=== PATIENT | male | born 1980 | race Caucasian/White ===

== ENCOUNTER 2016-11-04 20:00 | Emergency (ER) | payer BC, OTHER ==
[2016-11-04] MEDS ORDERED: SODIUM CHLORIDE 0.9% 1,000 ML IV ONE (20:31)
[2016-11-04] MEDS ORDERED: MAG HYDROX/AL HYDROX/SIMETH 30 ML, HYOSCYAMINE ELIXIR 10 ML, CIMETIDINE HCL 300 MG, LID... PO STA ×4 (20:31)
[2016-11-04] MEDS ORDERED: HYDROmorphone 1 MG/ML 1 ML SYRINGE IVP STA (20:31)
[2016-11-04] MEDS ORDERED: ONDANSETRON 4 MG/2 ML VIAL IVP STA (20:31)
--- NOTE | 2016-11-04 20:51 | ED ---
Abdominal Pain HPI - General Chief Complaint: Abdominal Pain Stated Complaint: Abd Pain Source: patient Mode of arrival: ambulatory Limitations: no limitations - History of Present Illness Initial Comments: 36 yo male presenting for evaluation of epigastric abdominal pain since the middle of last night. He states he got up to get a drink of water and the pain gradually started and progressed throughout the day. He describes it as a sharpness without radiation. There are no exacerbating or alleviating factors. He states he has a subjective history of PUD however this has never been confirmed. Associated nausea without vomiting. - Related Data Home Medications Medication Instructions Recorded Confirmed Cetirizine HCl [Zyrtec] 10 mg PO DAILY 11/04/16 11/04/16 Garlic 1 tab PO DAILY 11/04/16 11/04/16 Green Tea Kelley Extract [Green Tea 150 mg PO DAILY 11/04/16 11/04/16 Extract] L.acidoph,Paracasei, B.lactis 1 cap PO DAILY 11/04/16 11/04/16 [Probiotic] Multivitamins, Thera [Multivitamin 1 tab PO DAILY 11/04/16 11/04/16 (formulary)] Sprague-3 Fatty Acids/Fish Oil [Fish 1 cap PO DAILY 11/04/16 11/04/16 Oil 1,000 mg Softgel] Previous Rx's Medication Instructions Recorded Mag Hydrox/Al Hydrox/Simeth 30 ml PO BID PRN #200 ml 11/04/16 [Maalox] Ranitidine HCl [Zantac] 150 mg PO BID #30 tab 11/04/16 Allergies Allergy/AdvReac Type Severity Reaction Status Date / Time shellfish derived [Shellfish] Allergy Anaphylaxis Verified 11/04/16 20:22 Review of Systems ROS Statement: Those systems with pertinent positive or pertinent negative responses have been documented in the HPI. ROS Other: All systems not noted in ROS Statement are negative. Constitutional: Denies: fever, chills, weight change Eyes: Denies: eye pain, eye discharge, vision change ENT: Denies: ear pain, throat pain Respiratory: Denies: cough, dyspnea Cardiovascular: Denies: chest pain, palpitations Endocrine: Denies: fatigue, polydipsia, polyuria Gastrointestinal: Reports: abdominal pain, nausea, other (appears distended). Denies: vomiting, diarrhea, constipation, hematemesis, melena, hematochezia Genitourinary: Denies: urgency, dysuria Musculoskeletal: Denies: back pain, arthralgia, myalgia Skin: Denies: rash, lesions Neurological: Denies: headache, weakness Psychiatric: Denies: anxiety, depression Hematological/Lymphatic: Denies: easy bleeding, easy bruising Past Medical History Past Medical History: No Reported History History of Any Multi-Drug Resistant Organisms: None Reported Past Surgical History: No Surgical Hx Reported Past Psychological History: No Psychological Hx Reported Smoking Status: Current every day smoker Past Alcohol Use History: Rare Past Drug Use History: None Reported General Exam Limitations: no limitations General appearance: alert, in distress Head exam: Present: atraumatic, normocephalic, normal inspection Eye exam: Present: normal appearance, PERRL, EOMI. Absent: scleral icterus, conjunctival injection, periorbital swelling ENT exam: Present: normal exam, mucous membranes moist Neck exam: Present: normal inspection. Absent: tenderness, meningismus, lymphadenopathy Respiratory exam: Present: normal lung sounds bilaterally. Absent: respiratory distress, wheezes, rales, rhonchi, stridor Cardiovascular Exam: Present: regular rate, normal rhythm, normal heart sounds. Absent: systolic murmur, diastolic murmur, rubs, gallop, clicks GI/Abdominal exam: Present: soft, tenderness (epigastric), normal bowel sounds. Absent: distended, guarding, rebound, rigid Rectal exam: Present: deferred Extremities exam: Present: normal inspection, full ROM, normal capillary refill. Absent: tenderness, pedal edema, joint swelling, calf tenderness Back exam: Present: normal inspection Neurological exam: Present: alert, oriented X3, CN II-XII intact Psychiatric exam: Present: normal affect, normal mood Skin exam: Present: warm, dry, intact, normal color. Absent: rash Course Vital Signs 11/04/16 20:09 Temperature 98.1 F Pulse Rate 71 Respiratory 18 Rate Blood Pressure 142/102 O2 Sat by Pulse 98 Oximetry Medical Decision Making - Medical Decision Making 36 yo male presenting with epigastric abdominal pain since late last night. On PE he is in marked distress on the cot. Tenderness to palpation in the epigastrium without peritoneal signs of guarding, rigidity, or rebound. Remainder of exam is benign. Will obtain labs, and provide IVF, zofran, and pain control. Concern for PUD vs pancreatitis, vs cholecystitis. Labs revealed no significant abnormalities including a normal LA, liver function tests, and WBC. The pt was reevaluated and had resolution of his symptoms. He was informed of his results. Although he clinically appeared to be gastritis/PUD he was offered US abdomen however refused at this time. He was advised to follow up with his PCP and given return instructions. He was further informed he would be given prescriptions for symptom control and a GI follow-up referral. The patient acknowledged an understanding of this information and agreed with this plan of care. - Lab Data Result diagrams: 11/04/16 20:45 11/04/16 20:45 Lab Results 11/04/16 11/04/16 11/04/16 Range/Units 20:45 20:45 20:45 WBC 8.6 (3.8-10.6) k/uL RBC 5.27 (4.30-5.90) m/uL Hgb 15.5 (13.0-17.5) gm/dL Hct 43.8 (39.0-53.0) % MCV 83.0 (80.0-100.0) fL MCH 29.3 (25.0-35.0) pg MCHC 35.4 (31.0-37.0) g/dL RDW 12.4 (11.5-15.5) % Plt Count 224 (150-450) k/uL Neutrophils % 62 % Lymphocytes % 27 % Monocytes % 4 % Eosinophils % 4 % Basophils % 0 % Neutrophils # 5.3 (1.3-7.7) k/uL Lymphocytes # 2.3 (1.0-4.8) k/uL Monocytes # 0.4 (0-1.0) k/uL Eosinophils # 0.4 (0-0.7) k/uL Basophils # 0.0 (0-0.2) k/uL Sodium 139 (137-145) mmol/L Potassium 4.2 (3.5-5.1) mmol/L Chloride 101 (98-107) mmol/L Carbon Dioxide 26 (22-30) mmol/L Anion Gap 12 mmol/L BUN 9 (9-20) mg/dL Creatinine 0.80 (0.66-1.25) mg/dL Est GFR (MDRD) Af Amer >60 (>60 ml/min/1.73 sqM) Est GFR (MDRD) Non-Af >60 (>60 ml/min/1.73 sqM) Glucose 122 H (74-99) mg/dL Plasma Lactic Acid Damion 1.3 (0.7-2.0) mmol/L Calcium 9.3 (8.4-10.2) mg/dL Total Bilirubin 0.5 (0.2-1.3) mg/dL AST 31 (17-59) U/L ALT 63 (21-72) U/L Alkaline Phosphatase 53 (38-126) U/L Total Protein 7.2 (6.3-8.2) g/dL Albumin 4.4 (3.5-5.0) g/dL Lipase 91 (23-300) U/L 11/04/16 21:36 Normal sinus rhythm with a ventricular rate of 60, TERESE 146, QRS 82, QT/QTc 412/ 412. Disposition Clinical Impression: Abdominal pain, Nausea Disposition: HOME SELF-CARE Condition: Stable Instructions: Abdominal Pain (ED), Peptic Ulcer (ED), Gastritis (ED), Diet for Stomach Ulcers and Gastritis (ED) Additional Instructions: Please use medication as discussed. Please follow up with family doctor if symptoms have not improved over the next two days. Please return to the emergency room if your symptoms increase or worsen or for any other concerns. Prescriptions: Mag Hydrox/Al Hydrox/Simeth [Maalox] 30 ml PO BID PRN #200 ml PRN Reason: abdominal pain Ranitidine HCl [Zantac] 150 mg PO BID #30 tab Referrals: None,Stated [Primary Care Provider] - 1-2 days Time of Disposition: 22:10
[2016-11-04 21:06] LABS: Basophils % (A) 0 %; CH 29.6; CHCM 35.8; Eosinophils # (A) 0.4 k/uL (0-0.7); Eosinophils % (A) 4 %; HCT 43.8 % (39.0-53.0); HDW 2.65; HGB 15.5 gm/dL (13.0-17.5); Luc # (Auto) 0.17; Luc % (Auto) 2; Lymphocytes # (A) 2.3 k/uL (1.0-4.8); Lymphocytes % (A) 27 %; MCH 29.3 pg (25.0-35.0); MCHC 35.4 g/dL (31.0-37.0); Mean Platelet Volume 7.2; Monocytes # (A) 0.4 k/uL (0-1.0); Monocytes % (A) 4 %; Neutrophils # (A) 5.3 k/uL (1.3-7.7); Neutrophils % (A) 62 %; RBC 5.27 m/uL (4.30-5.90); RDW 12.4 % (11.5-15.5); WBC 8.6 k/uL (3.8-10.6); WBC (Perox) 8.61
[2016-11-04 21:11] LABS: ALT 63 U/L (21-72); AST 31 U/L (17-59); Alkaline Phosphatase 53 U/L (38-126); Anion Gap 12 mmol/L; Blood Urea Nitrogen 9 mg/dL (9-20); Calcium 9.3 mg/dL (8.4-10.2); Carbon Dioxide 26 mmol/L (22-30); Chloride 101 mmol/L (98-107); Glucose 122 mg/dL (74-99); Non-African American GFR(MDRD) >60 (>60 ml/min/1.73 sqM); Potassium 4.2 mmol/L (3.5-5.1); Sodium 139 mmol/L (137-145); Total Bilirubin 0.5 mg/dL (0.2-1.3); Total Protein 7.2 g/dL (6.3-8.2)
--- NOTE | 2016-11-04 21:53 | XR ---
EXAMINATION TYPE: XR abdomen acute w cxr DATE OF EXAM: 11/04/2016 COMPARISON: NONE HISTORY: Abdominal pain TECHNIQUE: Supine, upright, and left side down lateral decubitus views of the abdomen are obtained. FINDINGS: There is no sign of intestinal obstruction or pneumoperitoneum. Fecal pattern is normal. Lungs are cl ear. Heart and mediastinum are normal. There are no pathologic calcifications over the kidneys. IMPRESSION: Nonacute abdomen. Normal chest.
[2016-11-04 22:24] VITALS: BP 137/77; PULSE 67; RESP 14; TEMP 98
== END 2016-11-04 22:24 | disposition home or self-care (01) ==
LOC: EC 20:00
DX: R10.13 Epigastric pain (principal); R11.0 Nausea; F17.200 Nicotine dependence, unspecified, uncomplicated; Z79.899 Other long term (current) drug therapy; Z91.013 Allergy to seafood
CPT/HCPCS: 99284; 96374; 96375; 96361 ×2; 36415; 93005; 80053; 83605; 83690; 85025; 74022; J2405; J1170